=== PATIENT | male | born 1985 | race African-American/Black ===

== ENCOUNTER 2024-07-23 11:31 | Inpatient (IN) | payer OTHER ==
[~2024-07-23] VITALS: Ht 167.6 cm; Wt 84.5 kg
--- NOTE | 2024-07-23 11:45 | ED.PDOC ---
History of present illness HPI Comments 39 y.o male presents to the ED for a chief complaint of SOB associated with excessive thirst and dry mouth. Patient reports symptoms been ongoing for " a while" states he works two jobs and has not been taking care of himself. Patient denies any chest pain, fever, chills, sweats, diarrhea, nausea, vomiting. Clovis akiko reports occasional alcohol and marijuana use, however last use was 4 months ago. Patient denies any medical history but does have family history of DM. Upon ED arrival, BG read 459. Time Seen by MD: 11:38 History of present illness: Nurses Notes, Medications, Allergies Allergies: Coded Allergies: NO KNOWN ALLERGIES (Unverified , 07/23/24) Information Source: Patient Mode of Arrival: Ambulatory Timing: Days Duration: Since onset [place]: Other History of: None Modifying factors: Nothing Associated signs and symptoms: Other Past Medical History PAST MEDICAL HISTORY: Denies Surgical History: Denies all surgeries Family History Family History: Family hx of DM Social History Smoker: Non-Smoker Alcohol: Occasionally Drugs: Marijuana Lives In: Home Constitutional: denies: chills, diaphoresis, fatigue, fever, malaise, sweats, weakness, others EENTM: denies: blurred vision, double vision, ear bleeding, ear discharge, ear drainage, ear pain, ear ringing, eye pain, eye redness, hearing loss, mouth pain, mouth swelling, nasal discharge, nose bleeding, nose congestion, nose pain, photophobia, tearing, throat pain, throat swelling, voice changes, others Respiratory: reports: SOB at rest, shortness of breath, SOB with excertion; denies: cough, hemoptysis, orthopnea, stridor, wheezing, others Cardiovascular: denies: chest pain, dizzy spells, diaphoresis, Dyspnea on exertion, edema, irregular heart beat, left arm pain, lightheadedness, palpitations, PND, syncope, others Gastrointestinal: denies: abdomen distended, abdominal pain, blood streaked bowels, constipated, diarrhea, dysphagia, difficulty swallowing, hematemesis, melena, nausea, poor appetite, poor fluid intake, rectal bleeding, rectal pain, vomiting, others Genitourinary: denies: burning, dysuria, flank pain, frequency, hematuria, incontinence, penile discharge, penile sore, pain, testicle pain, testicle swelling, urgency, others Neurological: denies: dizziness, fainting, headache, left sided numbness, left sided weakness, numbness, paresthesia, pre-existing deficit, right sided numbness, right sided weakness, seizure, speech problems, tingling, tremors, weakness, others Musculoskeletal: denies: back pain, gout, joint pain, joint swelling, muscle pain, muscle stiffness, neck pain, others Integumetry: denies: bruises, change in color, change in hair/nails, dryness, laceration, lesions, lumps, rash, wounds, others Allergic/Immunocompromised: denies: Difficulty Healing, Frequent Infections, H elsy, Itching, others Hematologic/Lymphatic: denies: anemia, blood clots, easy bleeding, easy bruising, swollen glands, others Endocrine: reports: excessive thirst, others (dry mouth ); denies: excessive hunger, excessive sweating, excessive urination, flushing, intolerance to cold, intolerance to heat, unexplained weight gain, unexplained weight loss Psychiatric: denies: anxiety, bipolar disorder, depression, hopeless, panic disorder, schizophrenia, sleepless, suicidal, others All Other Systems: Reviewed and Negative Physical Exam General Appearance: Moderate Distress HEENT: Pharynx Normal, TMs Normal, Other (Dry mouth) Neck: Full Range of Motion, Non-Tender, Normal, Normal Inspection Respiratory: Chest Non-Tender, Decreased Breath Sounds, Lungs Clear, No Accessory Muscle Use, Respiratory Distress Cardiovascular: No Edema, No JVD, No Murmur, No Gallop, Tachycardia Breast Exam: Deferred Gastrointestinal: No Organomegaly, Non Tender, No Pulsatile Mass, Normal Bowel Sounds, Soft Genitalia: Deferred Pelvic: Deferred Rectal: Deferred Extremities: No calf tenderness, Normal capillary refill, Normal inspection, Normal range of motion, Non-tender, No pedal edema Musculoskeletal : Apperance: Normal 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 Was a procedure done?: No Differential Diagnosis (DM) Differential Diagnosis: Dehydration, Diabetic Coma, DKA, Electrolyte Abnormality, Hyperglycemia X-Ray, Labs, Meds, VS Vital Signs Date Time Temp Pulse Resp B/P (MAP) Pulse Ox O2 Delivery O2 Flow Rate FiO2 07/23/24 12:18 103 07/23/24 12:04 97.6 105 24 131/88 (102) 99 97.6 07/23/24 12:02 105 25 97 Room Air* 0 21 07/23/24 11:45 97.6 118 30 125/63 (83) 97 97.6 Lab Test 07/23/24 12:48 07/23/24 12:19 07/23/24 12:06 07/23/24 11:53 Range/Units POC Glucose 421 *H 481 *H 70-106 mg/dl Blood Gas Specimen Type Arterial Blood Gas Sample Site Left radial Blood Gas Patient Temperature 37.0 Arterial Blood Date Drawn [id number] Arterial Blood pH 7.130 *L 7.350-7.450 Arterial Blood Partial Pressure CO2 < 12.6 *L 35.0-48.0 mmHg Arterial Blood Partial Pressure O2 131.4 H 83.0-108.0 mmHg Arterial Blood Oxygen Saturation 98.3 H 94.0-98.0 % Arterial Blood Oxyhemoglobin 97.4 94.0-98.0 % Arterial Blood Carboxyhemoglobin 0.3 L 0.5-1.5 % Arterial Blood Methemoglobin 0.6 0.0-1.5 % Marshal Test Yes Blood Gas Total Hemoglobin 17.10 13.5-17.5 g/dL Blood Gas Modality Room air FiO2 % 21.0 Blood Gas Critical Value Read Back Yes Blood Gas Notified Whom Michelle valentin md Blood Gas Notified Time [id number] Blood Gas Notified By Michelle valentin md White Blood Count 7.7 4.4-10.8 10^3/uL Red Blood Count 5.34 4.5-5.90 10^6/uL Hemoglobin 17.5 13.5-17.5 g/dL Hematocrit 52.3 41.0-53.0 % Mean Corpuscular Volume 97.9 80.0-100.0 fL Mean Corpuscular Hemoglobin 32.8 H 28.0-32.0 pg Mean Corpuscular Hemoglobin Concent 33.5 32.0-36.0 g/dL Red Cell Distribution Width 15.8 H 11.8-14.3 % Platelet Count 209 140-450 10^3/uL Mean Platelet Volume 11.2 H 6.9-10.8 fL Neutrophils (%) (Auto) 78.3 37.0-80.0 % Lymphocytes (%) (Auto) 11.7 10.0-50.0 % Monocytes (%) (Auto) 9.6 0.0-12.0 % Eosinophils (%) (Auto) 0.1 0.0-7.0 % Basophils (%) (Auto) 0.3 0.0-2.0 % Neutrophils # (Auto) 6.1 1.6-8.6 10 ^3/uL Lymphocytes # (Auto) 0.9 0.4-5.4 10 ^3/uL Monocytes # (Auto) 0.7 0-1.3 10 ^3/uL Eosinophils # (Auto) 0 0-0.8 10 ^3/uL Basophils # (Auto) 0 0-0.2 10 ^3/uL Nucleated Red Blood Cells 0.1 % Platelet Estimate Adequate Giant Platelets Few Anisocytosis (manual) Slight Sodium Level 135 L 136-145 mmol/L Potassium Level 3.5 3.5-5.1 mmol/L Chloride Level 100 98-107 mmol/L Carbon Dioxide Level < 10 *L 20-31 mmol/L Anion Gap 25.57860 H 5-15 Blood Urea Nitrogen 21 9-23 mg/dL Creatinine 1.90 H 0.700-1.30 mg/dL Glomerular Filtration Rate Calc 46 >90 mL/min BUN/Creatinine Ratio 11.1 10.0-20.0 Serum Glucose 518 *H 74-106 mg/dL Serum Osmolality 333 H 278-298 mOsm/kg Calcium Level 10.0 8.7-10.4 mg/dL Phosphorus Level 3.3 2.4-5.1 mg/dL Magnesium Level 3.2 H 1.6-2.6 mg/dL Beta-Hydroxybutyric Acid > 4.500 H < 0.4 mmol/L Test 07/23/24 11:41 Range/Units POC Glucose 459 *H 70-106 mg/dl Current Medications Medications (Trade) Dose Ordered Sig/Yuliana Route Start Time Stop Time Status Last Admin Sodium Chloride 1,000 ml @ 1,000 mls/hr Q1H ONCE IV 07/23/24 11:45 07/23/24 12:44 DC 07/23/24 12:01 Insulin Human Regular (InsuLIN R) 5 units ONCE ONCE IV 07/23/24 11:45 07/23/24 11:46 DC 07/23/24 12:12 Sodium Chloride 1,000 ml @ 500 mls/hr Q2H IV 07/23/24 12:30 07/23/24 16:29 07/23/24 12:52 Insulin Human (Reg)/Sodium Chloride 100 ml @ 0.5 mls/hr Q24H IV 07/23/24 12:30 07/23/24 12:52 Diagnostic Test (Pha) (Accu-Chek Comfort Curve T) 1 strip Q90MIN 07/23/24 13:30 07/23/24 13:31 Insulin Glargine (Lantus) 15 units ONCE ONCE SC 07/23/24 12:30 07/23/24 12:31 DC 07/23/24 12:33 Sodium Bicarbonate 50 ml ONCE ONCE IV 07/23/24 12:30 07/23/24 12:31 DC 07/23/24 12:28 IV Hep-Lock was established. The patient had an Accu-Chek which was 459 We suspected that the patient may have DKA. The patient was given insulin 5 units IV push for the elevated blood sugar. We started the patient on normal saline at 1 L bolus. We did an ABG and it shows the pH of 7.13 The patient was then started on an insulin drip. The patient was also given one amp of sodium bicarbonate. The beta hydroxybutyric acid is significantly elevated. The serum glucose came back at 518. The CO2 level is less than 20 The anion gap is 25. The CBC is within normal limits At this time we will continue the insulin drip and the patient will be admitted to the hospitalist We have discussed the findings with the patient and he is in agreement with the management. The diagnosis is new onset diabetes presenting as diabetic ketoacidosis The patient was being admitted to the ICU. Critical Care involved bedside management as well as decision making based on review of labs and imaging studies Images Reviewed?: Images reviewed and evaluated by me Time of 1ST Reevaluation: 11:42 Reevaluation 1ST: Unchanged Patient Education/Counseling: Diagnosis, Treatment, Prognosis Family Education/Counseling: No Family Present Departure 1 Departure Time of Disposition: 13:42 Impression: Primary Impression: Diabetic ketoacidosis Qualified Codes: E13.10 - Other specified diabetes mellitus with ketoacidosis without coma Disposition: ADMITTED INPATIENT Admit to: ICU Condition: Guarded Critical Care Note Critical Care Time?: Yes (1 hr-critical care time only) Stability Stability form required: Yes Unstable for transfer: ICU, CCU, PCU, OLI (Intensive VS monitoring), ED Physician Assesment (Clinical assesment) I personally scribed for TASNEEM VALENTIN MD ([email or web address]) on 07/23/24 at 11:45. Electronically submitted by Nuvia Oliva ([facility]). TASNEEM VALENTIN MD Jul 23, 2024 11:45
[2024-07-23] MEDS: SODIUM CHLORIDE 0.9% 1,000 ML IV ONE (12:01)
[2024-07-23 12:02] VITALS: PULSE 105; RESP 25; O2SAT 97
[2024-07-23 12:11] LABS: Basophils # (auto) 0 10 ^3/uL (0-0.2); Basophils % (auto) 0.3 % (0.0-2.0); Eosinophils # (auto) 0 10 ^3/uL (0-0.8); Eosinophils % (auto) 0.1 % (0.0-7.0); Hematocrit 52.3 % (41.0-53.0); Hemoglobin 17.5 g/dL (13.5-17.5); Lymphocytes # (auto) 0.9 10 ^3/uL (0.4-5.4); Lymphocytes % (auto) 11.7 % (10.0-50.0); Mean Corpuscular Hemoglobin 32.8 pg (28.0-32.0); Mean Corpuscular Hgb Conc. 33.5 g/dL (32.0-36.0); Mean Corpuscular Volume 97.9 fL (80.0-100.0); Monocytes # (auto) 0.7 10 ^3/uL (0-1.3); Monocytes % (auto) 9.6 % (0.0-12.0); Neutrophils # (auto) 6.1 10 ^3/uL (1.6-8.6); Neutrophils % (auto) 78.3 % (37.0-80.0); Nucleated Red Blood Cells % 0.1 %; Platelet Count (auto) 209 10^3/uL (140-450); Red Blood Cells 5.34 10^6/uL (4.5-5.90); Red Cell Distribution Width 15.8 % (11.8-14.3); White Blood Cell 7.7 10^3/uL (4.4-10.8)
[2024-07-23] MEDS: InsuLIN REG 1unit/0.01ml Soln (100units/ml) IV ONE (12:12)
--- NOTE | 2024-07-23 12:21 | DVH ---
EXAM: XY CHEST PORTABLE Indication: sob Technique: Single frontal view of the chest was obtained Comparison: None FINDINGS: Lines and Tubes: None Lungs: No focal consolidation. Pleura: No effusion. No pneumothorax. Cardiomediastinal contours: Unremarkable Bones: No acute osseous abnormality. IMPRESSION: No acute cardiopulmonary disease.
[2024-07-23 12:27] LABS: Chloride 100 mmol/L (98-107); Potassium 3.5 mmol/L (3.5-5.1)
[2024-07-23 12:28] LABS: Anion Gap 25.00001 (5-15)
[2024-07-23] MEDS: SODIUM BICARB 8.4% 50Meq/50ml SYR Vial IV ONE (12:28)
[2024-07-23] MEDS ORDERED: DEXTROSE (50%) 50ML SYRG IV PRN (12:30)
[2024-07-23 12:33] LABS: BUN/Creatinine Ratio 11.1 (10.0-20.0); Blood Urea Nitrogen 21 mg/dL (9-23)
[2024-07-23] MEDS: INSULIN LANTUS (GLARGINE) 1 /0.01ml (100units/ml) SC ONE (12:33)
[2024-07-23 12:35] LABS: Sodium 135 mmol/L (136-145)
[2024-07-23 12:39] LABS: Carbon Dioxide < 10 mmol/L (20-31); Glucose 518 mg/dL (74-106)
[2024-07-23] MEDS: SODIUM CHLORIDE 0.9% 1,000 ML IV SCH ×3 (12:52→18:30)
[2024-07-23] MEDS: INSULIN DRIP 100 UNIT/100ML 100 ML IV SCH (12:52)
[2024-07-23 12:53] LABS: Anisocytosis Slight; Giant Platelets Few; Platelet Estimate Adequate
[2024-07-23 13:03] LABS: Magnesium 3.2 mg/dL (1.6-2.6); Phosphorus 3.3 mg/dL (2.4-5.1)
[2024-07-23] MEDS: ACCU-CHEK COMFORT CURVE STRIP VI SCH (13:31)
[2024-07-23 14:40] LABS: Urine Bacteria None Seen /hpf (None Seen)
[2024-07-23 14:53] LABS: Urine Blood 2+ /uL (Negative); Urine Clarity Clear (Clear); Urine Color Light-Yellow (Yellow); Urine Protein, UAD 2+ (Negative); Urine Specific Gravity 1.017 (1.001-1.035); Urine Squamous Epithelial Cell FEW /hpf (<5); Urine Urobilinogen Normal (Negative); Urine WBC 1 /HPF (0-3)
[2024-07-23 16:32] LABS: Sodium 142 mmol/L (136-145)
[2024-07-23 16:33] LABS: Anion Gap 21 (5-15)
[2024-07-23 16:38] LABS: BUN/Creatinine Ratio 13.6 (10.0-20.0); Blood Urea Nitrogen 20 mg/dL (9-23)
[2024-07-23 16:39] LABS: Calcium 8.6 mg/dL (8.7-10.4); Carbon Dioxide 11 mmol/L (20-31); Chloride 110 mmol/L (98-107); Glucose 225 mg/dL (74-106); Potassium 2.7 mmol/L (3.5-5.1)
[2024-07-23] MEDS ORDERED: ONDANSETRON HCL 4 MG/2 ML VIAL IV PRN (16:45)
[2024-07-23] MEDS ORDERED: MORPHINE SULFATE INJ 2 MG/ml SYRG IV PRN (16:45)
[2024-07-23] MEDS ORDERED: NITROGLYCERIN 0.4 MG SL TAB SL PRN (16:45)
[2024-07-23] MEDS ORDERED: ACETAMINOPHEN 325 MG TAB PO PRN (16:45)
[2024-07-23] MEDS ORDERED: DOCUSATE SOD 100 MG CAP PO PRN (16:45)
[2024-07-23] MEDS ORDERED: HYDROcodone-ACET 5/325MG TAB PO PRN (16:45)
--- NOTE | 2024-07-23 16:59 | DVHHP2 ---
History of Present Illness Reason for Visit: Fatigue History of Present Illness Joseph Maloney is a 39-year-old male denies any significant past medical history who came in due to being lethargic and fatigue. Patient states he has not been feeling well for about 3-4 days. He states he has been lethargic, and thirsty. Patient states he works 2 jobs and he thought he was just tired. Past Surgical History: None Smoke: Quit (3 months ago) ALCOHOL: none Drugs: None Lives: with Family Domestic Violence: Neg Review of Systems Constitutional: Yes: Weakness, Malaise; No: Fever, Chills, Sweats, Other Eyes: No: Pain, Vision change, Conjunctivae inflammation, Eyelid inflammation, Other, Redness ENT: No: Ear pain, Ear discharge, Nose pain, Nose discharge, Nose congestion, Mouth pain, Mouth swelling, Throat pain, Throat swelling, Other Respiratory: No: Cough, Dry, Shortness of breath, SOB with excertion, Wheezing, Hemoptysis, Pleuritic Pain, Sputum, Wheezing, Other Cardiovascular: No: Chest Pain, Palpitations, Orthopnea, Paroxysmal Noc. Dyspnea, Edema, Lt Headedness, Other Gastrointestinal: No: Nausea, Vomiting, Abdominal Pain, Diarrhea, Constipation, Melena, Hematochezia, Other Genitourinary: No Dysuria; Frequency; No Incontinence, No Hematuria, No Retention, No Other Musculoskeletal: No: other, neck pain, shoulder pain, arm pain, back pain, hand pain, leg pain, foot pain Skin: No: Rash, Lesions, Jaundice, Bruising, Other Neurological: No: Weakness, Numbness, Incoordination, Change in speech, Confusion, Seizures, Other Allergies: Coded Allergies: NO KNOWN ALLERGIES (Unverified , 07/23/24) Medications Current Medications Medications Dose Ordered Sig/Yuliana Route Start Time Stop Time Status Last Admin Dose Admin Sodium Chloride 1,000 ml @ 250 mls/hr Q4H IV 07/23/24 16:30 07/23/24 18:29 Sodium Chloride 1,000 ml @ 150 mls/hr Q6H40M IV 07/23/24 18:30 Insulin Human (Reg)/Sodium Chloride 100 ml @ 0.5 mls/hr Q24H IV 07/23/24 12:30 07/23/24 12:52 6 MLS/HR Dextrose 50 ml UD PRN IV 07/23/24 12:30 Diagnostic Test (Pha) 1 strip Q90MIN 07/23/24 13:30 07/23/24 15:06 1 STRIP Insulin Glargine 15 units DAILY SC 07/24/24 10:00 Exam Vital Signs Vital Signs Date Time Temp Pulse Resp B/P (MAP) Pulse Ox O2 Delivery O2 Flow Rate FiO2 07/23/24 15:59 99 18 133/78 (96) 99 07/23/24 12:04 97.6 97.6 07/23/24 12:02 Room Air* 0 21 General Appearance: Alert, Oriented X3, Cooperative, moderate distress HEENT: Atraumatic, PERRLA, Mucous membr. moist/pink Respiratory: Clear to auscultation, Normal air movement Cardiovascular: Normal S1, Normal S2, No murmurs, Other (tachycardia) Abdominal: Normal bowel sounds, Soft, No tenderness Extremities: No clubbing, No cyanosis, No edema, Normal pulses Skin: No rashes, No breakdown, No significant lesion Neuro: Normal speech, Strength at 5/5 X4 ext Psych/Mental Status: Mental status NL, Mood NL Labs/Xrays Labs Test 07/23/24 16:19 07/23/24 15:51 07/23/24 12:19 07/23/24 12:11 Range/Units POC Glucose 238 H 70-106 mg/dl Blood Gas Specimen Type Arterial Blood Gas Sample Site Left radial Blood Gas Patient Temperature 37.0 Arterial Blood Date Drawn [id number] Arterial Blood pH 7.130 *L 7.350-7.450 Arterial Blood Partial Pressure CO2 < 12.6 *L 35.0-48.0 mmHg Arterial Blood Partial Pressure O2 131.4 H 83.0-108.0 mmHg Arterial Blood Oxygen Saturation 98.3 H 94.0-98.0 % Arterial Blood Oxyhemoglobin 97.4 94.0-98.0 % Arterial Blood Carboxyhemoglobin 0.3 L 0.5-1.5 % Arterial Blood Methemoglobin 0.6 0.0-1.5 % Marshal Test Yes Blood Gas Total Hemoglobin 17.10 13.5-17.5 g/dL Blood Gas Modality Room air FiO2 % 21.0 Blood Gas Critical Value Read Back Yes Blood Gas Notified Panfilo valentin md Blood Gas Notified Time [id number] Blood Gas Notified By Michelle valentin md Urine Color Light-yellow Yellow Urine Clarity Clear Clear Urine pH 6.0 5.0-9.0 Urine Specific [place] 1.017 1.001-1.035 Urine Protein 2+ H Negative Urine Ketones 4+ H Negative Urine Blood 2+ H Negative /uL Urine Nitrite Negative Negative Urine Bilirubin Negative Negative Urine Urobilinogen Normal Negative mg/dL Urine Leukocyte Esterase Negative Negative /uL Urine RBC 1 0 - 3 /hpf Urine Microscopic WBC 1 0-3 /HPF Urine Squamous Epithelial Cells Few <5 /hpf Urine Bacteria None seen None Seen /hpf Urine Glucose 4+ H Normal mg/dL Test 07/23/24 11:53 Range/Units White Blood Count 7.7 4.4-10.8 10^3/uL Red Blood Count 5.34 4.5-5.90 10^6/uL Hemoglobin 17.5 13.5-17.5 g/dL Hematocrit 52.3 41.0-53.0 % Mean Corpuscular Volume 97.9 80.0-100.0 fL Mean Corpuscular Hemoglobin 32.8 H 28.0-32.0 pg Mean Corpuscular Hemoglobin Concent 33.5 32.0-36.0 g/dL Red Cell Distribution Width 15.8 H 11.8-14.3 % Platelet Count 209 140-450 10^3/uL Mean Platelet Volume 11.2 H 6.9-10.8 fL Neutrophils (%) (Auto) 78.3 37.0-80.0 % Lymphocytes (%) (Auto) 11.7 10.0-50.0 % Monocytes (%) (Auto) 9.6 0.0-12.0 % Eosinophils (%) (Auto) 0.1 0.0-7.0 % Basophils (%) (Auto) 0.3 0.0-2.0 % Neutrophils # (Auto) 6.1 1.6-8.6 10 ^3/uL Lymphocytes # (Auto) 0.9 0.4-5.4 10 ^3/uL Monocytes # (Auto) 0.7 0-1.3 10 ^3/uL Eosinophils # (Auto) 0 0-0.8 10 ^3/uL Basophils # (Auto) 0 0-0.2 10 ^3/uL Nucleated Red Blood Cells 0.1 % Platelet Estimate Adequate Giant Platelets Few Anisocytosis (manual) Slight Serum Osmolality 333 H 278-298 mOsm/kg Phosphorus Level 3.3 2.4-5.1 mg/dL Magnesium Level 3.2 H 1.6-2.6 mg/dL Beta-Hydroxybutyric Acid > 4.500 H < 0.4 mmol/L EXAM: XY CHEST PORTABLE FINDINGS: Lines and Tubes: None Lungs: No focal consolidation. Pleura: No effusion. No pneumothorax. Cardiomediastinal contours: Unremarkable Bones: No acute osseous abnormality. IMPRESSION: No acute cardiopulmonary disease. Assessment/Plan Assessment/Plan Assessment: Diabetic ketoacidosis, Metabolic acidosis, Hypokalemia, Plan: Admit to ICU, Insulin drip, BMP Q 6, Manage/Monitor electrolytes closely, IV hydration, A1c, Plan discussed with: Patient My Orders Orders - ALLAN HUBBARD Procedure Category Date Status Time Basic Metabolic Panel LAB 07/23/24 In Process 15:31 Admit ADMIT 07/23/24 Verified 16:32 Code Status CODE 07/23/24 Verified 16:32 Hydrocodone-Acet PHA 07/23/24 Verified 5/325mg Tab ([place] 16:45 Ondansetron Hcl PHA 07/23/24 Verified (Zofran) 16:45 Docusate Sodium PHA 07/23/24 Verified Capsule (Colace 16:45 Complete Blood Count LAB 07/24/24 Verified 04:00 Comprehensive LAB 07/24/24 Verified Metabolic Panel 04:00 Condition: Critical [facility] 07/23/24 Verified 16:32 Acetaminophen Tablet PHA 07/23/24 Verified (Tylenol Tablet) 16:45 Nitroglycerin PHA 07/23/24 Verified Sublingual (Ntrostat 16:45 Morphine Sulfate PHA 07/23/24 Verified Injection 16:45 Stat Ekg For Chest [facility] 07/23/24 Verified Pain 16:32 Notify Md Of Changes [facility] 07/23/24 Verified From Base 16:32 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
[2024-07-23] MEDS: POTASSIUM CHL 20 Meq TABLET PO ONE ×2 (17:18→21:08)
[2024-07-23] MEDS ORDERED: SODIUM CHLORIDE 0.9% 1,000 ML IV SCH (18:30)
[2024-07-23 19:00] VITALS: PULSE 97; RESP 22; O2SAT 99
[2024-07-23] MEDS: D5W/SOD CHL 0.45%/KCL 20MEQ 1,000 ML IV SCH (20:22)
[2024-07-24] VITALS (23 sets, daily range): BP systolic 104–127; BP diastolic 63–88; PULSE 84–99; RESP 12–18; TEMP 97.8–99.1; O2SAT 97–100
[2024-07-24 00:56] LABS: Sodium 139 mmol/L (136-145)
[2024-07-24 00:57] LABS: Anion Gap 16 (5-15)
[2024-07-24 01:02] LABS: BUN/Creatinine Ratio 15.1 (10.0-20.0); Blood Urea Nitrogen 18 mg/dL (9-23)
[2024-07-24 01:03] LABS: Calcium 8.6 mg/dL (8.7-10.4); Carbon Dioxide 12 mmol/L (20-31); Chloride 111 mmol/L (98-107); Glucose 210 mg/dL (74-106); Potassium 2.7 mmol/L (3.5-5.1)
[2024-07-24] MEDS: POTASSIUM EFFERVESENT TAB 25 MEQ PO ONE ×2 (02:40→15:58)
[2024-07-24] MEDS: POTASSIUM CHL 20MEQ/100ML 100 ML IV SCH (02:41)
[2024-07-24 03:01] LABS: Base Excess -10.4 mmol/L (-2.0-3.0)
[2024-07-24 06:04] LABS: Basophils # (auto) 0 10 ^3/uL (0-0.2); Basophils % (auto) 0.4 % (0.0-2.0); Eosinophils # (auto) 0.1 10 ^3/uL (0-0.8); Eosinophils % (auto) 1.1 % (0.0-7.0); Hematocrit 39.1 % (41.0-53.0); Hemoglobin 13.7 g/dL (13.5-17.5); Lymphocytes % (auto) 15.7 % (10.0-50.0); Mean Corpuscular Hemoglobin 32.3 pg (28.0-32.0); Mean Corpuscular Volume 92.2 fL (80.0-100.0); Monocytes # (auto) 0.9 10 ^3/uL (0-1.3); Monocytes % (auto) 14.2 % (0.0-12.0); Neutrophils # (auto) 4.2 10 ^3/uL (1.6-8.6); Neutrophils % (auto) 68.6 % (37.0-80.0); Nucleated Red Blood Cells % 0.1 %; Platelet Count (auto) 138 10^3/uL (140-450); Red Blood Cells 4.24 10^6/uL (4.5-5.90); Red Cell Distribution Width 15.2 % (11.8-14.3); White Blood Cell 6.1 10^3/uL (4.4-10.8)
[2024-07-24] MEDS: POTASSIUM CHL 20MEQ/50ML 50 ML IV ONE ×2 (06:37→10:41)
[2024-07-24 06:38] LABS: Alkaline Phosphatase 97 U/L (46-116); Anion Gap 15 (5-15); BUN/Creatinine Ratio 15.7 (10.0-20.0); Blood Urea Nitrogen 18 mg/dL (9-23); Calcium 8.9 mg/dL (8.7-10.4); Sodium 138 mmol/L (136-145); Total Protein 6.5 g/dL (5.7-8.2)
[2024-07-24 06:39] LABS: Alanine Aminotransferase 9 U/L (7-40); Albumin 3.9 g/dL (3.2-4.8); Aspartate Aminotransferase 8 U/L (13-40); Bilirubin, Total 0.5 mg/dL (0.2-1.0); Carbon Dioxide 14 mmol/L (20-31); Chloride 109 mmol/L (98-107); Glucose 203 mg/dL (74-106); Potassium 3.3 mmol/L (3.5-5.1)
[2024-07-24] MEDS: INSULIN LANTUS (GLARGINE) 1 /0.01ml (100units/ml) SC SCH (10:56)
--- NOTE | 2024-07-24 12:27 | ECG ---
[facility] Test Date: 2024-07-24 Test Time: 02:36:03 Pat Name: ROSANGELA JUAREZ Department: Room: 0221 Gender: M Planning Lead: ELAINA : 1985 Requested By: PHUC COY Order Number: [id number] Reading MD: Michael Zeng Measurements Intervals [place] Rate: 90 P: 63 [place]: 153 QRS: 46 QRSD: 95 T: -32 QT: 324 QTc: 397 Interpretive Statements Sinus rhythm Consider right atrial enlargement Probable left ventricular hypertrophy Borderline T abnormalities, inferior leads ST elevation, consider anterior injury Baseline wander in lead(s) V1,V2 Electronically Signed On 07-26-2024 20:24:00 PDT by Michael Zeng Please click the below link to view image of tracing.
[2024-07-24 13:35] LABS: Sodium 138 mmol/L (136-145)
[2024-07-24 13:36] LABS: Anion Gap 14 (5-15); Calcium 8.9 mg/dL (8.7-10.4); Carbon Dioxide 16 mmol/L (20-31); Chloride 108 mmol/L (98-107); Potassium 2.9 mmol/L (3.5-5.1)
[2024-07-24 13:41] LABS: BUN/Creatinine Ratio 16.3 (10.0-20.0); Blood Urea Nitrogen 17 mg/dL (9-23)
[2024-07-24 13:42] LABS: Glucose 132 mg/dL (74-106)
[2024-07-24] MEDS ORDERED: DEXTROSE (50%) 50ML SYRG IV PRN (14:15)
[2024-07-24] MEDS: INSULIN LANTUS (GLARGINE) 1 /0.01ml (100units/ml) SC ONE (14:15)
[2024-07-24] MEDS: SODIUM CHL 0.9% 100 ML IV ONE (14:45)
[2024-07-24] MEDS ORDERED: POTASSIUM CHL 20MEQ/50ML 50 ML IV SCH (14:45)
[2024-07-24] MEDS: SODIUM CHLORIDE 0.9% 1,000 ML IV SCH (15:57)
[2024-07-24] MEDS ORDERED: ACCU-CHEK COMFORT CURVE STRIP VI SCH (16:00)
[2024-07-24] MEDS ORDERED: INSULIN LISPRO (HUMAN) 100 UNITS/ML ML SC SCH (17:00)
[2024-07-24] MEDS: POTASSIUM CHL 20MEQ/50ML 50 ML IV SCH (20:08)
[2024-07-24] MEDS: INSULIN LISPRO (HUMAN) 100 UNITS/ML ML SC SCH (21:29)
[2024-07-24] MEDS: ACCU-CHEK COMFORT CURVE STRIP VI SCH (21:33)
--- NOTE | 2024-07-24 22:42 | DVHPN2 ---
Assessment/Plan Assessment/Plan ICU note 39 M with no significant PMH admitted for DKA. First onset of DM, no identified source of infection. Discussed regarding need of insulin use. bridged. starting on basal bolus insulin. resumed diet Physical exam AOx4 clear breath sounds s1 s2 RRR no murmur abdomen soft nontender No LE edema labs ekg imaging reviewed assessment and plan new onset diabetes DKA resolved hypokalemia dehydration proteinuria bridge insulin basal bolus, lantus 20, lispro 5, ISS FS x4 diabetic education hypoglycemia precaution replete K IVF start azra prior to dc rec workup [place]TONIO, [place], ICA, cpeptide as outpatient transfer to telemetry diet full liquid dvt ppx ambulatory critical care time 35 minutes Plan discussed with: Patient My Orders Orders - JEROD PARRISH MD Procedure Category Date Status Time Dextrose 50% Syringe PHA 07/24/24 In Process 14:15 Insulin Lantus PHA 07/25/24 In Process (Glargine) (Lantus) 10:00 Sodium Chloride 0.9% PHA 07/24/24 In Process 14:15 Pharmacy [facility] 07/24/24 In Process Clarification: 23:59 Transfer Orders XFER 07/24/24 Transmitted 17:17 Potassium Chl PHA 07/24/24 In Process 20meq/50ml (Potassium 19:30 Consistent DIET 07/24/24 Transmitted Carb(Ccho)Diabetes Dinner Glucose Blood PHA 07/24/24 In Process (Accu-Chek Comfort 22:00 Insulin Lispro PHA 07/24/24 In Process (Human) (Humalog) 22:00 Date of Service: Jul 24, 2024 Billing Provider: JEROD PARRISH MD Common Visit Codes: [id number] CARE 30-74 MIN JEROD PARRISH MD Jul 24, 2024 22:42
[2024-07-25] VITALS (9 sets, daily range): BP systolic 100–113; BP diastolic 61–85; PULSE 63–93; RESP 14–20; TEMP 98–99; O2SAT 96–100
[2024-07-25 07:40] LABS: Anion Gap 16 (5-15); Chloride 106 mmol/L (98-107); Sodium 139 mmol/L (136-145)
[2024-07-25 07:41] LABS: Calcium 8.9 mg/dL (8.7-10.4)
[2024-07-25 07:44] LABS: Carbon Dioxide 17 mmol/L (20-31)
[2024-07-25 07:46] LABS: Blood Urea Nitrogen 12 mg/dL (9-23)
[2024-07-25 07:48] LABS: Glucose 198 mg/dL (74-106)
[2024-07-25 08:15] LABS: Cholesterol 126 mg/dL (< 200); HDL Cholesterol 44 mg/dL (40-59); LDL Cholesterol 48 mg/dL (< 100); Triglycerides 113 mg/dL (< 150)
[2024-07-25] MEDS ORDERED: POTASSIUM EFFERVESENT TAB 25 MEQ GT ONE (08:45)
--- NOTE | 2024-07-25 08:48 | DVHPN2 ---
Assessment/Plan Assessment/Plan progress note 39 M with no significant PMH admitted for DKA. First onset of DM, no identified source of infection. Discussed regarding need of insulin use. bridged. starting on basal bolus insulin. resumed diet seen today during rounds, increased lantus. basal bolus regimen. replete K Physical exam AOx4 clear breath sounds s1 s2 RRR no murmur abdomen soft nontender No LE edema labs ekg imaging reviewed assessment and plan new onset diabetes DKA resolved hypokalemia dehydration proteinuria bridge insulin basal bolus, lantus 20, lispro 5, ISS FS x4 diabetic education hypoglycemia precaution replete K IVF start azra prior to dc rec workup ANTONIO, [place], ICA, cpeptide as outpatient transfer to telemetry diet full liquid dvt ppx ambulatory Plan discussed with: Patient My Orders Orders - JEROD PARRISH MD Procedure Category Date Status Time Dextrose 50% Syringe PHA 07/24/24 In Process 14:15 Insulin Lantus PHA 07/25/24 In Process (Glargine) (Lantus) 10:00 Sodium Chloride 0.9% PHA 07/24/24 In Process 14:15 Pharmacy [facility] 07/24/24 In Process Clarification: 23:59 Transfer Orders XFER 07/24/24 Transmitted 17:17 Consistent DIET 07/24/24 Transmitted Carb(Ccho)Diabetes Dinner Glucose Blood PHA 07/24/24 In Process (Accu-Chek Comfort 22:00 Insulin Lispro PHA 07/24/24 In Process (Human) (Humalog) 22:00 *Rn Varnish Remover REFER 07/24/24 Transmitted Referral 22:33 Potassium Effervesent PHA 07/25/24 Transmitted Tab (Klor-Con/Ef) 08:45 Potassium Chl [place] PHA 07/25/24 Transmitted KCL 08:45 Date of Service: Jul 25, 2024 Billing Provider: JEROD PARRISH MD Common Visit Codes: [id number] INP/OBS CARE(HIGH) JEROD PARRISH MD Jul 25, 2024 08:48
[2024-07-25] MEDS: INSULIN LANTUS (GLARGINE) 1 /0.01ml (100units/ml) SC SCH (09:03)
[2024-07-25] MEDS: POTASSIUM CHL 20MEQ/50ML 50 ML IV SCH (09:17)
[2024-07-25] MEDS: POTASSIUM EFFERVESENT TAB 25 MEQ PO ONE (09:23)
[2024-07-25] MEDS ORDERED: INSULIN LANTUS (GLARGINE) 1 /0.01ml (100units/ml) SC SCH (10:00)
[2024-07-25] MEDS: SODIUM CHLORIDE 0.9% 1,000 ML IV SCH (11:30)
[2024-07-25 13:16] LABS: Anion Gap 12 (5-15); Carbon Dioxide 22 mmol/L (20-31); Chloride 102 mmol/L (98-107); Potassium 3.3 mmol/L (3.5-5.1); Sodium 136 mmol/L (136-145)
[2024-07-25 13:22] LABS: BUN/Creatinine Ratio 10.2 (10.0-20.0); Blood Urea Nitrogen 10 mg/dL (9-23)
[2024-07-25 13:23] LABS: Calcium 8.5 mg/dL (8.7-10.4); Glucose 227 mg/dL (74-106)
[2024-07-26] VITALS (8 sets, daily range): BP systolic 94–113; BP diastolic 54–70; PULSE 63–81; RESP 14–17; TEMP 97.6–98.2; O2SAT 96–98
[2024-07-26 06:53] LABS: Chloride 101 mmol/L (98-107); Sodium 138 mmol/L (136-145)
[2024-07-26 06:54] LABS: Anion Gap 11 (5-15); Carbon Dioxide 26 mmol/L (20-31)
[2024-07-26 06:56] LABS: Basophils # (auto) 0 10 ^3/uL (0-0.2); Basophils % (auto) 0.8 % (0.0-2.0); Eosinophils # (auto) 0.1 10 ^3/uL (0-0.8); Eosinophils % (auto) 2.8 % (0.0-7.0); Hematocrit 34.7 % (41.0-53.0); Lymphocytes # (auto) 1.5 10 ^3/uL (0.4-5.4); Lymphocytes % (auto) 36.3 % (10.0-50.0); Mean Corpuscular Hemoglobin 31.5 pg (28.0-32.0); Mean Corpuscular Hgb Conc. 34.6 g/dL (32.0-36.0); Monocytes # (auto) 0.8 10 ^3/uL (0-1.3); Monocytes % (auto) 17.9 % (0.0-12.0); Neutrophils # (auto) 1.8 10 ^3/uL (1.6-8.6); Neutrophils % (auto) 42.2 % (37.0-80.0); Nucleated Red Blood Cells % 0.1 %; Platelet Count (auto) 109 10^3/uL (140-450); Red Blood Cells 3.82 10^6/uL (4.5-5.90); White Blood Cell 4.2 10^3/uL (4.4-10.8)
[2024-07-26 07:00] LABS: BUN/Creatinine Ratio 5.3 (10.0-20.0); Blood Urea Nitrogen 5 mg/dL (9-23); Calcium 8.6 mg/dL (8.7-10.4); Glucose 175 mg/dL (74-106)
[2024-07-26 07:01] LABS: Potassium 2.5 mmol/L (3.5-5.1)
[2024-07-26] MEDS: POTASSIUM EFFERVESENT TAB 25 MEQ PO ONE (09:01)
[2024-07-26] MEDS: SODIUM CHL 0.9% 50 ML IV SCH (09:30)
[2024-07-26] MEDS: INSULIN LISPRO (HUMAN) 100 UNITS/ML ML SC SCH (11:28)
[2024-07-26] MEDS: POTASSIUM CHL 20MEQ/50ML 50 ML IV SCH (12:06)
[2024-07-26] MEDS ORDERED: LANC-347 XX (13:43)
[2024-07-26] MEDS ORDERED: INSU-450 XX (13:43)
[2024-07-26] MEDS ORDERED: INSUINJ37 SC (13:43)
[2024-07-26] MEDS ORDERED: INSU100I54 SC (13:43)
[2024-07-26] MEDS ORDERED: ALCO70PA28 XX (13:43)
[2024-07-26] MEDS ORDERED: BLOO-200 XX (13:43)
--- NOTE | 2024-07-26 20:04 | DVHPN2 ---
Assessment/Plan Assessment/Plan progress note 39 M with no significant PMH admitted for DKA. First onset of DM, no identified source of infection. Discussed regarding need of insulin use. bridged. starting on basal bolus insulin. resumed diet seen today during rounds, adding sliding scale on top of lispro. K still low, repleted. hold dc Physical exam AOx4 clear breath sounds s1 s2 RRR no murmur abdomen soft nontender No LE edema labs ekg imaging reviewed assessment and plan new onset diabetes DKA resolved hypokalemia dehydration proteinuria bridge insulin basal bolus, lantus 20, lispro 5, ISS FS x4 diabetic education hypoglycemia precaution replete K IVF start azra prior to dc rec workup ANTONIO, [place], ICA, cpeptide as outpatient transfer to telemetry diet full liquid dvt ppx ambulatory Plan discussed with: Patient My Orders Orders - JEROD PARRISH MD Procedure Category Date Status Time Insulin Lispro PHA 07/26/24 In Process (Human) (Humalog) 11:30 Basic Metabolic Panel LAB 07/26/24 Logged 22:00 Basic Metabolic Panel LAB 07/27/24 Verified 04:00 Mild Sliding Scale PHA 07/26/24 Verified 22:00 Communication Order ORDERS 07/26/24 Verified 20:01 Date of Service: Jul 26, 2024 Billing Provider: JEROD PARRISH MD Common Visit Codes: [id number] INP/OBS CARE(HIGH) JEROD PARRISH MD Jul 26, 2024 20:04
[2024-07-26] MEDS ORDERED: SODIUM CHL 0.9% 50 ML IV SCH (21:00)
[2024-07-26] MEDS: InsuLIN REG 1unit/0.01ml Soln (100units/ml) SC SCH (21:08)
[2024-07-26] MEDS: POTASSIUM CHL 20MEQ/50ML 50 ML IV ONE (21:09)
[2024-07-26 23:01] LABS: Chloride 100 mmol/L (98-107); Sodium 136 mmol/L (136-145)
[2024-07-26 23:02] LABS: Anion Gap 5 (5-15); Calcium 9.3 mg/dL (8.7-10.4); Carbon Dioxide 31 mmol/L (20-31)
[2024-07-26 23:06] LABS: Potassium 3.1 mmol/L (3.5-5.1)
[2024-07-26 23:07] LABS: BUN/Creatinine Ratio 7.3 (10.0-20.0)
[2024-07-26 23:43] LABS: Blood Urea Nitrogen 7 mg/dL (9-23); Glucose 260 mg/dL (74-106)
[2024-07-27 01:00] VITALS: BP_SYST 104; BP_SYST 126; BP_DIAS 69; BP_DIAS 70; PULSE 61; PULSE 63; RESP 16; TEMP 98.1; TEMP 98.2; O2SAT 98; O2SAT 99
[2024-07-27 05:00] VITALS: BP 92/75; PULSE 73; RESP 16; TEMP 98.5; O2SAT 95
[2024-07-27 07:14] LABS: Chloride 103 mmol/L (98-107); Sodium 143 mmol/L (136-145)
[2024-07-27 07:15] LABS: Anion Gap 11 (5-15)
[2024-07-27 07:16] LABS: Calcium 9.5 mg/dL (8.7-10.4); Potassium 2.9 mmol/L (3.5-5.1)
[2024-07-27 07:21] LABS: BUN/Creatinine Ratio 7.9 (10.0-20.0); Blood Urea Nitrogen 6 mg/dL (9-23); Carbon Dioxide 29 mmol/L (20-31); Glucose 122 mg/dL (74-106)
[2024-07-27 08:48] VITALS: BP 109/74; PULSE 71; RESP 17; TEMP 98.5; O2SAT 97
[2024-07-27] MEDS ORDERED: POTA-228 PO (10:51)
--- NOTE | 2024-07-27 10:55 | DVHDS2 ---
Discharge Summary Date of Admission Jul 23, 2024 at 16:32 Date of Discharge: Jul 27, 2024 Labs/Diagnostic Data: Laboratory Results Test 07/27/24 06:15 07/27/24 06:06 07/26/24 06:12 07/25/24 06:27 POC Glucose 136 mg/dl (70-106) Sodium Level 143 mmol/L (136-145) Potassium Level 2.9 mmol/L (3.5-5.1) Chloride Level 103 mmol/L (98-107) Carbon Dioxide Level 29 mmol/L (20-31) Anion Gap 11 (5-15) Blood Urea Nitrogen 6 mg/dL (9-23) Creatinine 0.76 mg/dL (0.700-1.30) Glomerular Filtration Rate Calc 118 mL/min (>90) BUN/Creatinine Ratio 7.9 (10.0-20.0) Serum Glucose 122 mg/dL (74-106) Calcium Level 9.5 mg/dL (8.7-10.4) White Blood Count 4.2 10^3/uL (4.4-10.8) Red Blood Count 3.82 10^6/uL (4.5-5.90) Hemoglobin 12.0 g/dL (13.5-17.5) Hematocrit 34.7 % (41.0-53.0) Mean Corpuscular Volume 91.0 fL (80.0-100.0) Mean Corpuscular Hemoglobin 31.5 pg (28.0-32.0) Mean Corpuscular Hemoglobin Concent 34.6 g/dL (32.0-36.0) Red Cell Distribution Width 15.0 % (11.8-14.3) Platelet Count 109 10^3/uL (140-450) Mean Platelet Volume 10.6 fL (6.9-10.8) Neutrophils (%) (Auto) 42.2 % (37.0-80.0) Lymphocytes (%) (Auto) 36.3 % (10.0-50.0) Monocytes (%) (Auto) 17.9 % (0.0-12.0) Eosinophils (%) (Auto) 2.8 % (0.0-7.0) Basophils (%) (Auto) 0.8 % (0.0-2.0) Neutrophils # (Auto) 1.8 10 ^3/uL (1.6-8.6) Lymphocytes # (Auto) 1.5 10 ^3/uL (0.4-5.4) Monocytes # (Auto) 0.8 10 ^3/uL (0-1.3) Eosinophils # (Auto) 0.1 10 ^3/uL (0-0.8) Basophils # (Auto) 0 10 ^3/uL (0-0.2) Nucleated Red Blood Cells 0.1 % Triglycerides Level 113 mg/dL (< 150) Cholesterol Level 126 mg/dL (< 200) LDL Cholesterol 48 mg/dL (< 100) HDL Cholesterol 44 mg/dL (40-59) Thyroid Stimulating Hormone (TSH) 1.97 uIU/mL (0.55-4.78) Test 07/24/24 05:10 07/24/24 02:42 07/23/24 12:19 07/23/24 12:11 Hemoglobin A1c > 14.0 % A1C (<5.7) Magnesium Level 2.5 mg/dL (1.6-2.6) Total Bilirubin 0.5 mg/dL (0.2-1.0) Aspartate Amino Transferase (AST) 8 U/L (13-40) Alanine Aminotransferase (ALT) 9 U/L (7-40) Alkaline Phosphatase 97 U/L (46-116) Total Protein 6.5 g/dL (5.7-8.2) Albumin 3.9 g/dL (3.2-4.8) Blood Gas Specimen Type Arterial Blood Gas Sample Site Right radial Blood Gas Patient Temperature 37.0 Arterial Blood Date Drawn [id number] Arterial Blood pH 7.347 (7.350-7.450) Arterial Blood Partial Pressure CO2 25.1 mmHg (35.0-48.0) Arterial Blood Partial Pressure O2 96.1 mmHg (83.0-108.0) Arterial Blood HCO3 13.5 mmol/L (21.0-28.0) Arterial Blood Oxygen Saturation 97.1 % (94.0-98.0) Arterial Blood Base Excess -10.4 mmol/L (-2.0-3.0) Arterial Blood Oxyhemoglobin 96.4 % (94.0-98.0) Arterial Blood Carboxyhemoglobin 0.3 % (0.5-1.5) Arterial Blood Methemoglobin 0.4 % (0.0-1.5) Marshal Test Modified Blood Gas Total Hemoglobin 13.60 g/dL (13.5-17.5) Blood Gas Modality Room air FiO2 % 21.0 Blood Gas Critical Value Read Back Yes Blood Gas Notified Whom Michelle valentin md Blood Gas Notified Time [id number] Blood Gas Notified By Michelle valentin md Urine Color Light-yellow (Yellow) Urine Clarity Clear (Clear) Urine pH 6.0 (5.0-9.0) Urine Specific [place] 1.017 (1.001-1.035) Urine Protein 2+ (Negative) Urine Ketones 4+ (Negative) Urine Blood 2+ /uL (Negative) Urine Nitrite Negative (Negative) Urine Bilirubin Negative (Negative) Urine Urobilinogen Normal mg/dL (Negative) Urine Leukocyte Esterase Negative /uL (Negative) Urine RBC 1 /hpf (0 - 3) Urine Microscopic WBC 1 /HPF (0-3) Urine Squamous Epithelial Cells Few /hpf (<5) Urine Bacteria None seen /hpf (None Seen) Urine Glucose 4+ mg/dL (Normal) Test 07/23/24 11:53 Platelet Estimate Adequate Giant Platelets Few Anisocytosis (manual) Slight Serum Osmolality 333 mOsm/kg (278-298) Phosphorus Level 3.3 mg/dL (2.4-5.1) Beta-Hydroxybutyric Acid > 4.500 mmol/L (< 0.4) Other Laboratory Tests 07/27/24 06:06 07/26/24 06:12 Brief Hx & Hospital Course: 39 M with no significant PMH admitted for DKA. First onset of DM, no identified source of infection. Discussed regarding need of insulin use. bridged. starting on basal bolus insulin. resumed diet. potassium repleted. once regimen and bg stable, discherged with basal bolus insulin and glucometer and k supplement. [facility] follow [facility]. will need endo for w/u of possible type 1 vs 2 Condition at Discharge: Good Final Diagnosis/Problems List DKA new onset IDDM Discharge Disposition: Home Discharge Instruct/Medications Diet: Cardiac 2g Na,low cholest Activity: No Restrictions, As Tolerated Follow Up/Referral: [facility] end[facility]in[facility] Medications: lantus lispro potassium Discharge Statement: "Patient was advised to return to the ER or call 911 if any headaches, dizziness, shortness of breath, chest pain, abdominal pain, bleeding, fevers, or worsening of medical condition. Patient was counseled about treatment plan, medications, possible side effects, patientverbalized understanding. All questions were answered to the best of my ability. This discharge took greater then 30 minutes in planning, reviewing documentation, counseling the patient, and discussing with other team members." ASSESSMENT ASSESSMENT Assessment new onset diabetes DKA resolved hypokalemia dehydration proteinuria Date of Service: Jul 27, 2024 Billing Provider: JEROD PARRISH MD Common Visit Codes: 92948-PMZ/OBS DISCH DAY >30min JEROD PARRISH MD Jul 27, 2024 10:55
[2024-07-27] MEDS ORDERED: POTASSIUM CHL 20MEQ/100ML 100 ML IV ONE (11:00)
[2024-07-27] MEDS: POTASSIUM EFFERVESENT TAB 25 MEQ PO ONE (11:37)
[2024-07-27] MEDS: POTASSIUM CHL 20MEQ/50ML 50 ML IV ONE (11:54)
[2024-07-27 12:51] VITALS: BP 97/63; PULSE 74; RESP 19; TEMP 97.8; O2SAT 94
[2024-07-27 13:23] VITALS: TEMP 36.6
== END 2024-07-27 14:35 | disposition home or self-care (01) | DRG 639 ==
LOC: ER 11:31 → OVERFLOW 16:32 → DOU IN ICU 07-24 00:38 → ICU CENTRL 07-24 03:39 → CENTRAL 07-24 17:40
PROVIDERS: ADMIT Student in an Organized Health Care Education/Training Program; ATTEND Student in an Organized Health Care Education/Training Program
DX: E11.10 Type 2 diabetes mellitus with ketoacidosis without coma (principal); E87.6 Hypokalemia; E86.0 Dehydration; Z83.3 Family history of diabetes mellitus; Z79.4 Long term (current) use of insulin; Z79.899 Other long term (current) drug therapy
CPT/HCPCS: 36415; 36600; 71045; 80048; 80053; 80061; 81001; 82010; 82805; 82962; 83036; 83735; 83930; 84100; 84443; 85025; 87081; 93005; 96374; 96375; 99291; G0378; J1815; J3480